=== PATIENT | male | born 2005 | race Caucasian/White ===

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

== ENCOUNTER 2024-04-27 08:09 | Emergency (ER) | payer OTHER ==
[~2024-04-27] VITALS: Ht 193 cm; Wt 120.2 kg
[~2024-04-27 08:09] MED LIST changes: +HALO.5 PO; +LAMO100 PO; +LAMO25 PO
[2024-04-27] MEDS ORDERED: Ibuprofen 400 MG Tab PO ONE (08:55)
[2024-04-27 11:00] VITALS: BP 153/92
[2024-04-27] MEDS ORDERED: HYDR1TAB94 PO (11:03)
== END 2024-04-27 12:30 | disposition home or self-care (01) ==
LOC: ER 08:09
DX: S52.121A Displaced fracture of head of right radius, initial encounter for closed fracture (principal); W18.30XA Fall on same level, unspecified, initial encounter; Z79.899 Other long term (current) drug therapy
CPT/HCPCS: 29105; 73080; 99283-25; A9270

== ENCOUNTER 2024-06-19 08:38 | Emergency (ER) | payer OTHER ==
[~2024-06-19] VITALS: Ht 193 cm; Wt 122.5 kg
[~2024-06-19 08:38] MED LIST changes: +HYDR1TAB94 PO
[2024-06-19 09:27] VITALS: BP 147/93
[2024-06-19] MEDS ORDERED: Ondansetron 4 MG SoluTab SL ONE (09:30)
[2024-06-19] MEDS ORDERED: IBU600 M1 PO (10:25)
[2024-06-19] MEDS ORDERED: ACETAMINOPHEN500 MG PO (10:25)
== END 2024-06-19 10:27 | disposition home or self-care (01) ==
LOC: ER 08:38
DX: U07.1 COVID-19 (principal)
CPT/HCPCS: 71046; 99283-25